=== PATIENT | male | born 1965 | race Caucasian/White ===

== ENCOUNTER 2024-02-05 06:32 | Emergency (ER) | payer OTHER, SELFPAY ==
[2012-01-28 08:32] VITALS: BP 181/96
--- NOTE | 2024-02-05 07:19 | ER ---
Nurse's Notes [facility] Name: Steve Jaramillo Age: 58 yrs Sex: Male : 1965 Arrival Date: 02/05/2024 Time: 06:32 Bed 13 [facility] MD: Diagnosis: ED Course: 02/04 06:37 Patient arrived in ED. gm2 06:57 Yaakov Chacon MD is Attending Physician. rt Administered Medications: No medications were administered Outcome: 07:18 Patient left the ED. Signatures: Suri Lopez RN RN Yaakov Chacon MD MD rt Sandi Hooks gm2
== END 2024-02-05 07:18 | disposition left against medical advice (07) ==
LOC: ER 06:32
DX: Z02.9 Encounter for administrative examinations, unspecified (principal)

== ENCOUNTER 2024-07-15 08:09 | Inpatient (IN) | payer SELFPAY ==
[2024-07-15] MEDS ORDERED: LEVALBUTEROL 1.25 MG/3 ML NEB ONE (08:22)
[2024-07-15] MEDS ORDERED: METHYLPREDNISOLONE 125 MG INJ ONE (08:22)
[2024-07-15] MEDS ORDERED: predniSONE 20 MG TAB ONE (08:22)
[2024-07-15] MEDS ORDERED: levoFLOXacin 500 MG TAB ONE (08:22)
[2024-07-15] MEDS ORDERED: IPRATROPIUM BROM 0.5MG/2.5ML ONE (08:23)
[2024-07-15] MEDS ORDERED: NA CHLORIDE 0.9% 1,000 ML ONE (08:23)
[2024-07-15] MEDS ORDERED: FAMOTIDINE 20 MG/2 ML VIAL IV ONE (08:45)
[2024-07-15 09:10] LABS: PT Prothrombin Time 13.6 SECONDS (9.4-12.5); Protime INR 1.22
[2024-07-15 09:14] LABS: Absolute Lymphocytes (CBC) 1.8 K/uL (0.7-4.9); Absolute Monocytes 0.7 K/uL (0.1-1.3); Absolute Neutrophil 6.4 K/uL (1.8-8.0); Basophils % 0.4 % (0-1.3); Eosinophils % 0.5 % (0-4.4); Hemoglobin 13.2 g/dL (13.6-17.9); Lymphocytes % 19.9 % (15.3-44.8); MCH 29.5 pg (27.0-35.0); MCV 92.2 fL (80-100); MPV 8.2 fL (7.6-11.3); Monocytes % 7.9 % (3.3-12.3); Neutrophils % 71.3 % (41.7-73.7); Platelets 219 thou/uL (152-406); RBC Red Blood Cell Count 4.45 M/uL (4.33-5.43)
[2024-07-15] MEDS ORDERED: ASPIRIN 81 MG CHEWABLE TABLET ONE (09:17)
[2024-07-15 09:25] LABS: Albumin 2.8 g/dL (3.4-5.0); Albumin/Globulin Ratio 0.8 (1.1-1.8); Anion Gap 8.5 mEq/L (5.0-15.0); Bilirubin Direct 0.2 mg/dL (0-0.2); Bilirubin Indirect, Calculated 0.5 mg/dL (0.2-0.8); Bilirubin Total 0.7 mg/dL (0.2-1.0); Globulin 3.4 g/dL (2.3-3.5); Magnesium 1.9 mg/dL (1.6-2.4); Potassium 4.5 mEq/L (3.5-5.1); Protein, Total 6.2 g/dL (6.4-8.2)
[2024-07-15 09:31] LABS: Troponin High Sensitivity 68.7 pg/mL (<58.9)
[2024-07-15 09:39] LABS: SARS-CoV-2 Antigen CONTROL BLUE LINE VIS/BG OK; SARS-CoV-2 Antigen Rapid Res Negative (Negative)
--- NOTE | 2024-07-15 09:46 | RAD REPORT ---
EXAMINATION: ONE VIEW CHEST XR CLINICAL INDICATION: COPD TECHNIQUE: Frontal chest projection is submitted. Examination is limited by patient positioning and t echnique. COMPARISON: 06/04/2014 FINDINGS: Patchy airspace opacity is present in the medial right lung base infiltrate/pneumonia. The heart is m oderately enlarged in size. No displaced fractures identified. IMPRESSION: Moderate medial right lung base pneumonia suspected.
--- NOTE | 2024-07-15 10:08 | ER ---
Nurse's Notes [facility] Name: Steve Jaramillo Age: 58 yrs Sex: Male : 1965 Arrival Date: 07/15/2024 Time: 08:09 Bed 6 Private MD: Diagnosis: Cardiomegaly;Chronic combined systolic (congestive) and diastolic (congestive) heart failure;Pleural effusion in other conditions classified elsewhere-moderate bilateral;Essential (primary) hypertension;Tobacco abuse counseling;Tobacco use Presentation: 07/15 08:25 Chief complaint: Patient states: SOB x1 WK. Coronavirus screen: At this time, the bp client does not indicate any symptoms associated with coronavirus-19. Ebola Screen: No symptoms or risks identified at this time. Initial Sepsis Screen: Does the patient meet any 2 criteria? HR > 90 bpm. No. Patient's initial sepsis screen is negative. Does the patient have a suspected source of infection? No. Patient's initial sepsis screen is negative. Risk Assessment: Do you want to hurt yourself or someone else? Patient reports no desire to harm self or others. Onset of symptoms is unknown. 08:25 Method Of Arrival: Ambulatory bp 08:25 Acuity: JESSE 3 bp Triage Assessment: 08:26 General: Appears in no apparent distress. Behavior is calm, cooperative, appropriate bp for age. Pain: Denies pain. EENT: No deficits noted. Neuro: No deficits noted. Cardiovascular: Rhythm is sinus tachycardia. Respiratory: Reports shortness of breath Breath sounds with wheezes bilaterally. Onset: The symptoms/episode began/occurred at an unknown time. the patient has mild shortness of breath. GI: No signs and/or symptoms were reported involving the gastrointestinal system. : No signs and/or symptoms were reported regarding the genitourinary system. Derm: No deficits noted. Musculoskeletal: No deficits noted. Historical: - Allergies: 08:26 No Known Allergies; bp - PMHx: 08:26 Hypertension; Kidney stones; bp - Immunization history:: Adult Immunizations up to date. - Infectious Disease History:: Denies. - Social history:: Smoking status: Patient reports the use of cigarette tobacco products, unknown amount. Screenin:27 [facility] ED Fall Risk Assessment (Adult) History of falling in the last 3 months, bp including since admission No falls in past 3 months (0 pts) Confusion or Disorientation No (0 pts) Intoxicated or Sedated No (0 pts) Impaired Gait No (0 pts) Mobility Assist Device Used No (0 pt) Altered Elimination No (0 pt) Score/Fall Risk Level 0 - 2 = Low Risk Oriented to surroundings. Abuse screen: Denies threats or abuse. Denies injuries from another. Nutritional screening: No deficits noted. Tuberculosis screening: No symptoms or risk factors identified. Assessment: 08:27 General: Appears in no apparent distress. Behavior is calm, cooperative, appropriate bp for age. Cardiovascular: Rhythm is sinus tachycardia. Respiratory: Airway is patent Respiratory effort is labored. 08:30 General: Appears in no apparent distress. uncomfortable, Behavior is calm, cooperative, jl7 appropriate for age. Pain: Complains of pain in epigastric area. Neuro: Level of Consciousness is awake, alert, obeys commands, Oriented to person, place, time, situation. Respiratory: Airway is patent Respiratory effort is even, labored, Respiratory pattern is regular, Breath sounds are diminished bilaterally. GI: Abdomen is round distended. Derm: Skin is pink, warm \T\ dry. 09:37 Reassessment: No changes from previously documented assessment. Patient is alert, bp oriented x 3, equal unlabored respirations, skin warm/dry/pink. Vital Signs: 08:25 BP 157 / 95; Pulse 106; Resp 24; Temp 98; Pulse Ox 100% on R/A; bp 09:36 BP 157 / 102; Pulse 106; Resp 35; Pulse Ox 100% ; Weight 108 kg; Height 6 ft. 1 in. ; bp 10:45 BP 139 / 86; Pulse 107; Resp 25; Pulse Ox 100% on R/A; jl7 11:28 BP 154 / 102; Pulse 105; Resp 31; Temp 98; Pulse Ox 100% on 3 lpm NC; bp 09:36 Body Mass Index 31.41 (108.00 kg, 185.42 cm) bp ED Course: 08:10 Patient arrived in ED. mr 08:12 Juan Jose Breen, JOSE A is Primary Nurse. jl7 08:17 Ed Jung MD is Attending Physician. chika 08:26 Triage completed. bp 08:26 Arm band placed on. bp 08:27 Patient has correct armband on for positive identification. bp 08:30 Initial lab(s) drawn, by ED staff, sent to lab. EKG done, by ED staff, reviewed by bp Ed Jung MD. Inserted saline lock: 20 gauge in right antecubital area, using aseptic technique. Blood collected. Flushed with 10 mL NS. 09:43 Chest Single View XRAY In Process Unspecified. EDMS 09:51 CT Aorta for Dissection In Process Unspecified. EDMS 10:06 Chetan Chou MD is Hospitalizing Provider. [facility] 10:46 Provided Education on: use of call kamara. jl7 10:46 Patient admitted, IV remains in place. intact, No redness/swelling at site. jl7 11:28 No provider procedures requiring assistance completed. bp 11:45 lunch tray delivered to pt in er 6. sp Administered Medications: 10:47 Discontinued: ns 0.9% 1000 ml IV at 1000 ml once; to be given as a bolus over 60 minutesjl7 08:50 Drug: NS 0.9% IV 1000 ml IV at 1000 ml once; to be given as a bolus over 60 minutes jl7 Route: IV; Rate: 1000 ml; Site: right antecubital; 10:47 Follow up: Response: No adverse reaction; IV Status: Order to discontinue infusion jl7 08:50 Drug: MethylPrednisoLONE IVP 125 mg IVP once Route: IVP; Site: right antecubital; jl7 10:47 Follow up: Response: No adverse reaction jl7 08:56 Drug: Levalbuterol Inhalation 3.75 mg Inhalation once Route: Inhalation; jl7 10:48 Follow up: Response: No adverse reaction jl7 08:56 Drug: Ipratropium Inhalation Aerosol 0.5 mg Inhalation once Route: Inhalation; jl7 10:48 Follow up: Response: No adverse reaction jl7 08:56 Drug: Famotidine IVP 20 mg IVP once; dilute with 10 mL 0.9% NaCl; give over 2 minutes jl7 Route: IVP; Site: right antecubital; 10:47 Follow up: Response: No adverse reaction jl7 09:10 Drug: predniSONE PO 60 mg PO once Route: PO; jl7 10:48 Follow up: Response: No adverse reaction jl7 09:19 Drug: Aspirin PO Chewable Tablet 162 mg PO once Route: PO; bp 10:47 Follow up: Response: No adverse reaction jl7 09:26 Drug: LevOfloxacin PO 750 mg PO once Route: PO; bp 10:47 Follow up: Response: No adverse reaction jl7 10:20 Drug: Furosemide IVP 20 mg IVP once; give over 2 minutes Route: IVP; Site: right bp antecubital; 11:29 Follow up: Response: No adverse reaction bp 10:20 Drug: Enoxaparin Sub-Q 1 mg/kg Sub-Q once Route: Sub-Q; Site: right lower abdomen; bp 11:29 Follow up: Response: No adverse reaction bp 10:45 Drug: Furosemide PO 40 mg PO once Route: PO; bp 11:29 Follow up: Response: No adverse reaction bp Medication: 08:27 VIS not applicable for this client. bp Outcome: 10:07 Decision to Hospitalize by Provider. chika 11:28 Admitted to Med/surg accompanied by tech, via wheelchair, room 201, with oxygen, with bp chart, 11:28 Condition: stable 11:28 Instructed on the need for admit, 12:01 Patient left the ED. bp Signatures: Dispatcher [employer] EDMS Ed Jung MD MD cha Pinkerton, Shawna sp Rivera, Mary, Reg Reg mr Juan Jose Breen, RN RN jl7 Bruce Ellis, RN RN bp Corrections: (The following items were deleted from the chart) 10:18 09:36 BP 157 / 102; Pulse 106bpm; Resp 35bpm; Pulse Ox 100%; bp bp
--- NOTE | 2024-07-15 10:08 | EDPHYS ---
Physician Documentation [facility] Name: Steve Jaramillo Age: 58 yrs Sex: Male : 1965 Arrival Date: 07/15/2024 Time: 08:09 Bed 6 Private MD: ED Physician Ed Jung HPI: 07/15 08:39 This 58 yrs old Male presents to ER via Ambulatory with complaints of chika Breathing Difficulty. 08:39 The patient has shortness of breath at rest, with light activity. Onset: The chika symptoms/episode began/occurred 14 day(s) ago. Duration: The symptoms are continuous, and are steadily getting worse. The patient's shortness of breath is aggravated by coughing, exertion, light activity, is alleviated by rest, sitting up, application of supplemental oxygen. Associated signs and symptoms: The patient has no apparent associated signs or symptoms. The patient has experienced similar episodes in the past, several times. Historical: - Allergies: 08:26 No Known Allergies; bp - PMHx: 08:26 Hypertension; Kidney stones; bp - Immunization history:: Adult Immunizations up to date. - Infectious Disease History:: Denies. - Social history:: Smoking status: Patient reports the use of cigarette tobacco products, unknown amount. ROS: 08:41 Constitutional: Negative for fever, chills, and weight loss, Eyes: Negative for injury, chika pain, redness, and discharge, ENT: Negative for injury, pain, and discharge, Neck: Negative for injury, pain, and swelling, Back: Negative for injury and pain, : Negative for injury, bleeding, discharge, and swelling, MS/Extremity: Negative for injury and deformity, Skin: Negative for injury, rash, and discoloration, Neuro: Negative for headache, weakness, numbness, tingling, and seizure, 08:41 Cardiovascular: Positive for chest pain, with cough, 08:41 Respiratory: Positive for cough, shortness of breath, wheezing, expiratory, 08:41 Abdomen/GI: Positive for abdominal pain, of the epigastric area, Exam: 08:41 Constitutional: This is a well developed, well nourished patient who is awake, alert, chika and in no acute distress. Head/Face: Normocephalic, atraumatic. Eyes: Pupils equal round and reactive to light, extra-ocular motions intact. Lids and lashes normal. Conjunctiva and sclera are non-icteric and not injected. Cornea within normal limits. Periorbital areas with no swelling, redness, or edema. ENT: Nares patent. No nasal discharge, no septal abnormalities noted. Tympanic membranes are normal and external auditory canals are clear. Oropharynx with no redness, swelling, or masses, exudates, or evidence of obstruction, uvula midline. Mucous membranes moist. Neck: Trachea midline, no thyromegaly or masses palpated, and no cervical lymphadenopathy. Supple, full range of motion without nuchal rigidity, or vertebral point tenderness. No Meningismus. Chest/axilla: Normal chest wall appearance and motion. Nontender with no deformity. No lesions are appreciated. Cardiovascular: Regular rate and rhythm with a normal S1 and S2. No gallops, murmurs, or rubs. Normal PMI, no JVD. No pulse deficits. Back: No spinal tenderness. No costovertebral tenderness. Full range of motion. Male : Normal genitalia with no discharge or lesions. Skin: Warm, dry with normal turgor. Normal color with no rashes, no lesions, and no evidence of cellulitis. MS/ Extremity: Pulses equal, no cyanosis. Neurovascular intact. Full, normal range of motion., bilateral aka Neuro: Awake and alert, GCS 15, oriented to person, place, time, and situation. Cranial nerves II-XII grossly intact. Motor strength 5/5 in all extremities. Sensory grossly intact. Cerebellar exam normal. Normal gait. Psych: Awake, alert, with orientation to person, place and time. Behavior, mood, and affect are within normal limits. 08:41 ECG was reviewed by the Attending Physician. 08:41 Respiratory: the patient does not display signs of respiratory distress, Respirations: labored breathing, that is mild, Breath sounds: decreased breath sounds, that are moderate, are scattered, rhonchi, that are mild, are scattered, stridor, is not appreciated, + upper airway congestion. Respiratory rate: 24 08:43 Musculoskeletal/extremity: DVT Exam: No signs of deep vein thrombosis. no pain, no chika swelling, no tenderness, negative Homans' sign noted on exam, no appreciated bluish discoloration, no erythema, no increased warmth, Vital Signs: 08:25 BP 157 / 95; Pulse 106; Resp 24; Temp 98; Pulse Ox 100% on R/A; bp 09:36 BP 157 / 102; Pulse 106; Resp 35; Pulse Ox 100% ; Weight 108 kg; Height 6 ft. 1 in. ; bp 10:45 BP 139 / 86; Pulse 107; Resp 25; Pulse Ox 100% on R/A; jl7 11:28 BP 154 / 102; Pulse 105; Resp 31; Temp 98; Pulse Ox 100% on 3 lpm NC; bp 09:36 Body Mass Index 31.41 (108.00 kg, 185.42 cm) bp MDM: 08:17 Medical Screening Exam initiated chika 08:43 Antibiotic administration: The patient is discharged and will get outpatient [facility] antibiotics, Levaquin. HEART Score: History: Slightly Suspicious (0), ECG: Non specific repolarization disturbance / LBTB / PM (1), Age: > 45 and < 65 years (1), Risk Factors: > or = 3 Risk factors for atherosclerotic disease (2), [Hypercholesterolemia] [Hypertension] [Active Smoker] [+ Family HX] Troponin: < or = 1 x Normal Limit (0). The patient was given aspirin in the Emergency Department. Immunization status: Influenza vaccine: within last 5 years. Data reviewed: vital signs, nurses notes, lab test result(s), EKG, radiologic studies, CT scan, plain films. Consideration of Admission/Observation Escalation of care including admission/observation considered. I considered the following discharge prescriptions or medication management in the emergency department Medications were administered in the Emergency Department. See MAR. Independent interpretation of the following test(s) in the Emergency Department EKG: See my EKG interpretation above. Test considered but Not performed: Ultrasound no 2 d echo. Historians other than the Patient: pt well informed. Care significantly affected by the following chronic conditions: Hypertension, tobacco abuse. Counseling: I had a detailed discussion with the patient and/or guardian regarding the historical points, exam findings, and any diagnostic results supporting the discharge/admit diagnosis, lab results, radiology results, the need for outpatient follow up, for definitive care, a family practitioner, a structural worker. 07/15 08:19 Order name: Basic Metabolic Panel; Complete Time: 09:34 [facility] 07/15 08:19 Order name: CBC with Diff; Complete Time: :34 [facility] 07/15 08:19 Order name: LFT's; Complete Time: 09:34 chika 07/15 08:19 Order name: Magnesium; Complete Time: 09:34 chika 07/15 08:19 Order name: NT PRO-BNP; Complete Time: 09:34 chika 07/15 08:19 Order name: PT-INR; Complete Time: 09:34 chika 07/15 08:19 Order name: Troponin HS; Complete Time: 09:34 chika 07/15 08:19 Order name: SARS RAPID; Complete Time: 09:59 [facility] 07/15 08:19 Order name: Flu; Complete Time: 09:59 [facility] 07/15 10:00 Order name: Blood Culture Adult (2) [facility] 07/15 10:00 Order name: Lactate w/ 2H reflex if indic. [facility] 07/15 10:25 Order name: Troponin High Sensitivity cm12 07/15 10:26 Order name: BNP cm12 07/15 10:51 Order name: Urinalysis w/ reflexes EDMS 07/15 10:51 Order name: Acute Hepatitis Panel EDMS 07/15 10:51 Order name: Acute Hepatitis Panel EDMS 07/15 10:51 Order name: CBC with Automated Diff EDMS 07/15 10:51 Order name: CBC with Automated Diff EDMS 07/15 10:51 Order name: CBC with Automated Diff EDMS 07/15 10:51 Order name: CBC with Automated Diff EDMS 07/15 10:51 Order name: Comprehensive Metabolic Panel EDMS 07/15 10:51 Order name: Comprehensive Metabolic Panel EDMS 07/15 10:51 Order name: Comprehensive Metabolic Panel EDMS 07/15 10:51 Order name: Comprehensive Metabolic Panel EDMS 07/15 10:51 Order name: Magnesium EDMS 07/15 10:51 Order name: Magnesium EDMS 07/15 10:51 Order name: Magnesium EDMS 07/15 10:51 Order name: Magnesium EDMS 07/15 10:51 Order name: NT PRO-BNP EDMS 07/15 10:51 Order name: NT PRO-BNP EDMS 07/15 10:51 Order name: NT PRO-BNP EDMS 07/15 10:51 Order name: NT PRO-BNP EDMS 07/15 10:51 Order name: Troponin High Sensitivity EDMS 07/15 10:51 Order name: Troponin High Sensitivity EDMS 07/15 08:38 Order name: CT Aorta for Dissection; Complete Time: 10:27 chika 07/15 08:55 Order name: Chest Single View XRAY; Complete Time: 09:59 [facility] 07/15 10:51 Order name: CONS Physician Consult EDCO 07/15 08:19 Order name: Cardiac monitoring; Complete Time: 08:34 [facility] 07/15 08:19 Order name: EKG - Nurse/Tech; Complete Time: 08:56 [facility] 07/15 08:19 Order name: IV Saline Lock; Complete Time: 08:34 [facility] 07/15 08:19 Order name: Labs collected and sent; Complete Time: 08:34 [facility] 07/15 08:19 Order name: O2 Per Protocol; Complete Time: 08:22 [facility] 07/15 08:19 Order name: O2 Sat Monitoring; Complete Time: 08:22 [facility] EC:41 Rate is 104 beats/min. Rhythm is regular. QRS [place] is Normal. GA interval is normal. chika QRS interval is normal. QT interval is normal. No Q waves. T waves are Inverted in leads I, aVL. No ST changes noted. Clinical impression: Sinus tachycardia. Interpreted by me. Reviewed by me. Administered Medications: 10:47 Discontinued: ns 0.9% 1000 ml IV at 1000 ml once; to be given as a bolus over 60 minutesjl7 08:50 Drug: NS 0.9% IV 1000 ml IV at 1000 ml once; to be given as a bolus over 60 minutes jl7 Route: IV; Rate: 1000 ml; Site: right antecubital; 10:47 Follow up: Response: No adverse reaction; IV Status: Order to discontinue infusion jl7 08:50 Drug: MethylPrednisoLONE IVP 125 mg IVP once Route: IVP; Site: right antecubital; jl7 10:47 Follow up: Response: No adverse reaction jl7 08:56 Drug: Levalbuterol Inhalation 3.75 mg Inhalation once Route: Inhalation; jl7 10:48 Follow up: Response: No adverse reaction jl7 08:56 Drug: Ipratropium Inhalation Aerosol 0.5 mg Inhalation once Route: Inhalation; jl7 10:48 Follow up: Response: No adverse reaction jl7 08:56 Drug: Famotidine IVP 20 mg IVP once; dilute with 10 mL 0.9% NaCl; give over 2 minutes jl7 Route: IVP; Site: right antecubital; 10:47 Follow up: Response: No adverse reaction jl7 09:10 Drug: predniSONE PO 60 mg PO once Route: PO; jl7 10:48 Follow up: Response: No adverse reaction jl7 09:19 Drug: Aspirin PO Chewable Tablet 162 mg PO once Route: PO; bp 10:47 Follow up: Response: No adverse reaction jl7 09:26 Drug: LevOfloxacin PO 750 mg PO once Route: PO; bp 10:47 Follow up: Response: No adverse reaction jl7 10:20 Drug: Furosemide IVP 20 mg IVP once; give over 2 minutes Route: IVP; Site: right bp antecubital; 11:29 Follow up: Response: No adverse reaction bp 10:20 Drug: Enoxaparin Sub-Q 1 mg/kg Sub-Q once Route: Sub-Q; Site: right lower abdomen; bp 11:29 Follow up: Response: No adverse reaction bp 10:45 Drug: Furosemide PO 40 mg PO once Route: PO; bp 11:29 Follow up: Response: No adverse reaction bp Disposition Summary: 07/15/24 10:07 Hospitalization Ordered Notes: Hospitalization Status: Inpatient Admission chika Provider: Chetan Chou cha Location: Telemetry/MedSurg (Inpatient) chika Condition: Fair chika Problem: new chika Symptoms: have improved chika Bed/Room Type: Standard chika Room Assignment: 201(07/15/24 11:22) sp Diagnosis - Cardiomegaly chika - Chronic combined systolic (congestive) and diastolic (congestive) heart failure chika - Pleural effusion in other conditions classified elsewhere - moderate bilateral chika - Essential (primary) hypertension chika - Tobacco abuse counseling chika - Tobacco use chika Forms: - Medication Reconciliation Form chika - SBAR form chika - Leadership Thank You Letter chika Signatures: Dispatcher [employer] EDEd Hernandez MD MD cha Pinkerton, Shawna sp Leal, Jahala RN RN jl7 Bruce Ellis RN RN Jennyfer Alcaraz FNP FNP cm12 Corrections: (The following items were deleted from the chart) 08:20 08:20 BASIC METABOLIC PANEL+C.LAB.BRZ ordered. EDMS EDMS 08:20 08:20 CBC+H.LAB.BRZ ordered. EDMS EDMS 08:20 08:20 HEPATIC FUNCTION+C.LAB.BRZ ordered. EDMS EDMS 08:20 08:20 MAGNESIUM+C.LAB.BRZ ordered. EDMS EDMS 08:20 08:20 PROBNP+C.LAB.BRZ ordered. EDMS EDMS 08:20 08:20 PROTIME (+INR)+COAG.LAB.BRZ ordered. EDMS EDMS 08:20 08:20 Troponin High Sensitivity+C.LAB.BRZ ordered. EDMS EDMS 08:20 08:20 SARS-COV-2 Antigen Rapid+I.LAB.BRZ ordered. EDMS EDMS 08:20 08:20 Influenza Screen (A \T\ B)+BA.LAB.BRZ ordered. EDMS EDMS 10:01 10:00 BLOOD CULTURE*+BA.LAB.BRZ ordered. EDMS EDMS 10:01 10:00 LACTATE+C.LAB.BRZ ordered. EDMS EDMS 10:25 10:25 Troponin High Sensitivity+C.LAB.BRZ ordered. EDMS EDMS 10:26 10:26 PROBNP+C.LAB.BRZ ordered. EDMS EDMS 11:22 10:07 chika sp
--- NOTE | 2024-07-15 10:09 | RAD REPORT ---
EXAM: CTA of the chest, abdomen and pelvis HISTORY: Chest pain and back pain dissection, pe;Abd pain COMPARISON: 10/06/2017 TECHNIQUE: Multiple contiguous axial images were obtained a CTA of the chest and abdomen with contras t per aortic dissection protocol. This involves 3D reconstructions, MIPs, volume rendered images and/or shaded surface rendering. One or more of the following dose reduction techniques were used: Au tomated exposure control, adjustment of the mA and/or kV according to patient size, and/or iterative reconstruction. Unless otherwise specified, incidental findings do not require dedicated im aging follow-up. Sagittal and coronal 3-D MIP reformats were performed. FINDINGS: PULMONARY ARTERIES: Normal in caliber without filling defects to suggest pulmonary emboli. ASCENDING THORACIC AORTA: Normal caliber without evidence of dissection or aneurysmal dilatation. DESCENDING THORACIC AORTA: Normal caliber without evidence of dissection or aneurysmal dilatation. ABDOMINAL AORTA: Mild atherosclerosis is seen, multifocal without aneurysm or dissection. CELIAC TRUNK: Patent. SMA: Patent GRIFFIN: Patent RENAL ARTERIES: Bilateral single renal arteries without significant atherosclerotic disease. MEDIASTINUM: No hilar or mediastinal lymphadenopathy. Cardiac size is prominent. LUNGS: Mild interstitial pulmonary edema seen. PLEURAL SPACE: Moderate pleural effusions, slightly larger on the right. LIVER: Subtle nodular contour suggests early cirrhosis. 8 mm low-density lesion anterior left lobe li alvaro, indeterminant.. SPLEEN: Unremarkable. PANCREAS: Unremarkable. KIDNEYS: Unremarkable. ADRENALS: Enlarged bilateral adrenal glands.. BOWEL: Moderate stool retention throughout the colon.. RETROPERITONEUM: No lymphadenopathy. BONES: Unremarkable ADDITIONAL FINDINGS: Moderate fat-containing umbilical hernia. Mild free fluid is seen in the pelvis and paracolic gutter. IMPRESSION: No evidence of thoracic or abdominal aortic aneurysm or dissection. Dependent pulmonary edema findings present with bilateral pleural effusions and cardiomegaly, suggest s CHF.
--- NOTE | 2024-07-15 10:30 | P.HP ---
Certification for Inpatient Patient admitted to: Observation With expected LOS: <2 Midnights <Jennyfer Goode - Last Filed: 07/15/24 14:56> Patient History Date of Service: 07/15/24 Reason for admission: Chest pain History of Present Illness: 58-year-old male with a past medical history of hypertension, tobacco use, presents to the emergency room with chest pain. He reports chest pain is substernal, nonradiating, he reports associated shortness of breath, shortness of breath worse while lying flat, worse with exertion. He reports symptoms worse over the last week. He reports cough, no reported fever, abdominal pain, edema, no reported history of HI, cardiac stents. Reports daily tobacco use, reports recently stopped alcohol in the last couple months. ER evaluation blood pressure 157/95, heart rate sinus tachycardia 106, respirations 24, temp 98, 90% on room air, EKG regular rate and rhythm, rate 124, ST changes, chest x-ray right lower lobe pneumonia, cardiomegaly, plan to admit for acute systolic, diastolic heart failure, bilateral pulmonary edema, bilateral pleural effusions, tobacco use. CT dissection 8 mm low-density lesion of the left lobe of the liver, enlarged bilateral adrenal glands, moderate pleural effusions larger on the right, no thoracic abdominal aortic aneurysm or dissection. Pulmonary edema with bilateral pleural effusions, cardiomegaly - Past Medical/Surgical History Diabetic: No -: kidney stones -: Hypertension -: knee SX - Social History Smoking Status: Current some day smoker Alcohol use: Yes CD- Drugs: No Caffeine use: No Place of Residence: Home <Jennyfer Goode - Last Filed: 07/15/24 14:56> Date of Service: 07/15/24 <Chetan Chou - Last Filed: 07/16/24 02:32> Allergies No Known Allergies Allergy (Verified 06/03/14 15:48) Home Medications: NK [No Home Meds] 06/03/14 Review of Systems 10-point ROS is otherwise unremarkable General: As per HPI <Jennyfer Goode - Last Filed: 07/15/24 14:56> Physical Examination - Physical Exam General: Alert, Oriented x3, Mild distress HEENT: Atraumatic, Normocephalic Neck: 2+ carotid pulse no bruit, JVD not distended Respiratory: Crackles/rales, Other (Tachypneic) Cardiovascular: Normal pulses, Normal S1 S2, Other (Sinus tachycardia rate 104) Gastrointestinal: Normal bowel sounds, Soft and benign Musculoskeletal: No swelling, No contractures Integumentary: No breakdown, No tenderness/swelling Neurological: Normal speech, Normal strength at 5/5 x4 extr, Sensation intact, Cranial nerves 3-12 intact - Studies Laboratory Data (last 24 hrs) 07/15/24 07/15/24 07/15/24 08:29 08:29 08:29 WBC 9.00 Hgb 13.2 L Hct 41.0 Plt Count 219 PT 13.6 H INR 1.22 Sodium 140 Potassium 4.5 BUN 29 H Creatinine 1.39 H Glucose 113 H Magnesium 1.9 Total Bilirubin 0.7 AST 47 H ALT 97 H Alkaline Phosphatase 116 Microbiology Data (last 24 hrs): 07/15/24 08:49 Nasopharnyx Influenza Type A Antigen Screen - Final 07/15/24 08:49 Nasopharnyx Influenza Type B Antigen Screen - Final <Jennyfer Goode - Last Filed: 07/15/24 14:56> - Studies Laboratory Data (last 24 hrs) 07/15/24 07/15/24 07/15/24 08:29 08:29 08:29 WBC 9.00 Hgb 13.2 L Hct 41.0 Plt Count 219 PT 13.6 H INR 1.22 Sodium 140 Potassium 4.5 BUN 29 H Creatinine 1.39 H Glucose 113 H Magnesium 1.9 Total Bilirubin 0.7 AST 47 H ALT 97 H Alkaline Phosphatase 116 Microbiology Data (last 24 hrs): 07/15/24 08:49 Nasopharnyx Influenza Type A Antigen Screen - Final 07/15/24 08:49 Nasopharnyx Influenza Type B Antigen Screen - Final <Chetan Chou - Last Filed: 07/16/24 02:32> Assessment and Plan - Problems (Diagnosis) (1) Chest pain, rule out acute myocardial infarction Current Visit: Yes Status: Acute (2) NSTEMI (non-ST elevated myocardial infarction) Current Visit: Yes Status: Acute (3) Acute combined systolic and diastolic heart failure Current Visit: Yes Status: Acute (4) Pulmonary edema Current Visit: Yes Status: Acute (5) Acute kidney injury Current Visit: Yes Status: Acute (6) Transaminitis Current Visit: Yes Status: Acute (7) Liver lesion Current Visit: Yes Status: Acute (8) Tobacco abuse Current Visit: Yes Status: Acute - Plan Admit to [facility] Cardiology consult, telemetry Echo, ordered for the a.m. Nuclear med stress test ordered for the a.m. Aggressive diuresis, Trend troponins, BNP, Daily weight,I&O) Therapeutic Lovenox 1 mg/kg Aspirin, beta-corey, antilipid, nitro, as needed analgesics, History of ETOH use-Transaminitis, liver ultrasound, hepatitis panel Educated on tobacco cessation Full code N.p.o. after midnight Diet cardiac, Disposition Home independent Discharge Plan: Home - Advance Directives Does patient have a Living Will: No Does patient have a Durable POA for Healthcare: No - Code Status/Comfort Care Code Status: Full Code Critical Care: No Time Spent Managing Pts Care (In Minutes): 55 <Jennyfer Goode - Last Filed: 07/15/24 14:56> Date of Service: 07/15/24 Patient was seen and examined. Events of the last 24 hours have been noted. Spoke with with JERSON regarding patient's clinical picture after evaluating and examining the patient independently. I performed a substantial part of the MDM during this patient's care today. I personally made or approved the documented management plan and acknowledge its risk of complications. I agree with the findings and documentation provided in the JERSON's notes. Appreciate cardiology input. Echocardiogram and stress test in AM. Continue with diuresing. Monitor renal function closely. <Chetan Chou - Last Filed: 07/16/24 02:32>
[2024-07-15] MEDS ORDERED: ACETAMINOPHEN 500 MG TAB PO PRN (10:46)
[2024-07-15] MEDS ORDERED: ONDANSETRON 4 MG/2 ML VIAL IV PRN (10:46)
[2024-07-15] MEDS ORDERED: ENOXAPARIN 100 MG/ML SYR SQ ONE (10:49)
[2024-07-15] MEDS ORDERED: FUROSEMIDE 40 MG TABLET ONE (10:49)
[2024-07-15] MEDS ORDERED: MORPHINE 2 MG/ML SYR IV PRN (10:49)
[2024-07-15] MEDS ORDERED: FUROSEMIDE 20 MG/ 2ML VIAL ONE (10:49)
[2024-07-15 11:04] LABS: Troponin High Sensitivity 68.8 pg/mL (<58.9)
[2024-07-15] MEDS: METOPROLOL TAR 25 MG TAB PO SCH (12:00)
[2024-07-15] MEDS ORDERED: MORPHINE 4 MG/ML SYR IV PRN (14:42)
[2024-07-15 15:05] VITALS: BMI 25.3
--- NOTE | 2024-07-15 15:07 | CON ---
Date of Consultation: 07/15/2024 Reason For Consultation: CHF. History Of Present Illness: This is a 58-year-old male who is alcoholic, who presented with shortnes s of breath, lower extremity edema, and orthopnea with mild chest discomfort. He is an active smoker for all his life. Denies having any active chest pain at present time. Past Medical History: Hypertension. Medications: Refer to reconciliation sheet for detailed list. Allergies: NO KNOWN DRUG ALLERGIES. Family History: No premature coronary artery disease or cancer. Social History: He is an active smoker. Drinks alcohol on a regular basis. Review of Systems: All systems reviewed and they are negative except as mentioned in the HPI. Physical Examination: Vital Signs: Reviewed. Head and Neck: Pupils are equal, reactive to light. Intact eye movements. No cervical adenopathy. Positive JVD. Lungs: Crackles in both lung bases. No accessory muscle use or muscle retraction. Heart: Regular rate and rhythm. No extra sounds. Abdomen: Soft and nontender. Bowel sounds positive. No organomegaly. No masses or hernia. Extremities: No clubbing, cyanosis. Positive edema. Neurologic: Alert, awake, oriented x3. No acute focal deficits appreciated. Lymph Nodes: No cervical lymphadenopathy. Investigations: NT-proBNP is 15,000, troponin 68. BUN 29, creatinine 1.39. Assessment/recommendation: 1.Acute congestive heart failure, unknown ejection fraction. Recommend to continue Lasix and obtain an echocardiogram tomorrow. 2.Elevated troponin, heavy smoker. Recommend to obtain an exercise nuclear stress test and counsele d to quit smoking. Further recommendations will follow after we get the echocardiogram as well as st ress test. Please place the patient back on Lasix. SR/MODL Voice ID: [id number] Report ID: [id number]
--- NOTE | 2024-07-15 17:00 | RAD REPORT ---
EXAMINATION: Ultrasound of the liver CLINICAL HISTORY: Liver lesion, COMPARISON: Recent CT study. FINDINGS: Liver: Visualized portions of the liver demonstrate diffuse parenchymal echogenicity suggesting steat osis. Significant bowel gas shadowing limited study. The contour of the liver is mildly nodular. Bile ducts: No intrahepatic or extrahepatic biliary dilatation. Common bile duct measures 3 mm. Fluid: No ascites. Spleen: Normal size. The spleen measures 10.5 cm. IMPRESSION: Diffuse fatty liver is seen with mild nodular contour suggesting cirrhosis. Discrete liver lesion is not identified, however assessment is limited by bowel gas shadowing. MRI liver protocol could provide more information if clinically desired.
[2024-07-15 18:23] LABS: Specific Gravity 1.013 (1.005-1.030); Urine Bilirubin NEGATIVE (Negative); Urine Blood Negative (Negative); Urine Clarity Clear (Clear); Urine Color Colorless (Yellow); Urine Glucose NEGATIVE (Negative); Urine Ketones NEGATIVE (Negative); Urine Microscopic Reflex YN NO UMIC; Urine Nitrite NEGATIVE (Negative); Urine Protein NEGATIVE (Negative); Urine Urobilinogen Normal (Normal)
[2024-07-15] MEDS: ATORVASTATIN 40 MG TAB PO SCH (20:53)
[2024-07-16 05:58] LABS: Absolute Lymphocytes (CBC) 1.1 K/uL (0.7-4.9); Absolute Monocytes 1.1 K/uL (0.1-1.3); Absolute Neutrophil 9.4 K/uL (1.8-8.0); Basophils % 0.2 % (0-1.3); Hematocrit 38.3 % (39.6-49.0); Hemoglobin 12.5 g/dL (13.6-17.9); Lymphocytes % 9.1 % (15.3-44.8); MCH 29.8 pg (27.0-35.0); MCHC 32.7 g/dL (32.0-36.0); MCV 91.1 fL (80-100); MPV 8.2 fL (7.6-11.3); Monocytes % 9.1 % (3.3-12.3); Neutrophils % 81.6 % (41.7-73.7); Platelets 214 thou/uL (152-406); Red Cell Distribution Width 15.9 % (12.1-15.2)
[2024-07-16 06:32] LABS: Albumin 2.7 g/dL (3.4-5.0); Albumin/Globulin Ratio 0.8 (1.1-1.8); Anion Gap 10.2 mEq/L (5.0-15.0); Bilirubin Total 0.6 mg/dL (0.2-1.0); Globulin 3.6 g/dL (2.3-3.5); Magnesium 1.9 mg/dL (1.6-2.4); Potassium 4.2 mEq/L (3.5-5.1); Protein, Total 6.3 g/dL (6.4-8.2)
[2024-07-16 07:11] LABS: Hepatitis B Core IgM Nonreactive (Nonreactive); Hepatitis B surface AG Interp. Nonreactive (Nonreactive); Hepatitis C Virus Ab Nonreactive (Nonreactive)
[2024-07-16 07:12] LABS: HBsAG Nonreactive Report Report
[2024-07-16] MEDS: ASPIRIN EC 81 MG TAB PO SCH (09:06)
--- NOTE | 2024-07-16 09:46 | P.PN ---
Subjective Date of Service: 07/16/24 Chief Complaint: Chest pain Subjective: No new changes, No C/O voiced, Tolerating diet, Ambulating, Improving Review of Systems 10-point ROS is otherwise unremarkable Physical Examination - Vital Signs Temperature: 97.8 F Blood Pressure: 156/90 Pulse: 97 Respirations: 20 Pulse Ox (%): 97 - Physical Exam General: Alert, In no apparent distress HEENT: Atraumatic, PERRLA, EOMI Neck: Supple, JVD not distended Respiratory: Clear to auscultation bilaterally, Normal air movement Cardiovascular: Regular rate/rhythm, Normal S1 S2 Gastrointestinal: Normal bowel sounds, No tenderness Musculoskeletal: No tenderness Integumentary: No rashes Neurological: Normal speech, Normal tone, Normal affect Lymphatics: No axilla or inguinal lymphadenopathy - Studies Microbiology Data (last 24 hrs): 07/15/24 08:49 Nasopharnyx Influenza Type A Antigen Screen - Final 07/15/24 08:49 Nasopharnyx Influenza Type B Antigen Screen - Final Medications List Reviewed: Yes Assessment And Plan - Current Problems (Diagnosis) (1) Tachycardia Current Visit: Yes Status: Acute Plan: most likely compensation for heart failure/possible PNA agree with lopressor 25 mg po bid (2) Decompensated heart failure Current Visit: Yes Status: Acute Plan: get echo lasix 40 mg IV BID Monitor input and output and electrolytes. (3) NSTEMI (non-ST elevated myocardial infarction) Current Visit: Yes Status: Acute Plan: mild elevated troponin but multiple risk factors including long history of tobacco use. agree with exercise nuclear stress test. ASA 81 mg daily Lipitor 40 mg daily
--- NOTE | 2024-07-16 13:06 | ECHO ---
HEIGHT: 6 ft 1 in WEIGHT: 192 lb 0 oz DATE OF STUDY: 07/16/[address]: Jennyfer Goode INTERNATIONAL STUDENT COUNSELORFlorentin 2-DIMENSIONAL: YES M.MODE: YES DOPPLER: YES COLOR FLOW: YES TDS: NO PORTABLE: YES DEFINITY: NO BUBBLE STUDY: NO DIAGNOSIS: ACUTE HEART FAILURE CARDIAC HISTORY: CATHERIZATION: SURGERY: PROSTHETIC VALVE: PACEMAKER: MEASUREMENTS (cm) DIASTOLIC (NORMALS) SYSTOLIC (NORMALS) IVSd 1.5 (0.6-1.2) LA Diam 4.6 (1.9-4.0) LVEF 10-15% LVIDd 5.1 (3.5-5.7) LVIDs 4.9 (2.0-3.5) %FS 4% LVPWd 1.6 (0.6-1.2) Ao Diam 3.1 (2.0-3.7) 2 DIMENSIONAL ASSESSMENT: RIGHT ATRIUM: ENLARGED LEFT ATRIUM: MILDLY DILATED RIGHT VENTRICLE: NORMAL LEFT VENTRICLE: NORMAL TRICUSPID VALVE: MILD TRICUSPID REGURGITATION MITRAL VALVE: MILD MITRAL REGURGITATION PULMONIC VALVE: NORMAL AORTIC VALVE: NORMAL PERICARDIAL EFFUSION: NONE AORTIC ROOT: NORMAL LEFT VENTRICULAR WALL MOTION: SEVERE GLOBAL HYPOKINESIS. DOPPLER/COLOR FLOW: GRADE III DIASTOLIC DYSFUNCTION. COMMENTS: 1. SEVERELY REDUCED LEFT VENTRICULAR SYSTOLIC FUNCTION, EJECTION FRACTION 10-15%, SEVERE GLOBAL HYPOKINESIS. 2. GRADE III DIASTOLIC DYSFUNCTION. 3. ELEVATED FILLING PRESSURE (RIGHT ATRIAL PRESSURE GREATER THAN 20mmHg) 4. MODERATE PULMONARY HYPERTENSION (RIGHT VENTRICULAR SYSTOLIC PRESSURE 50-55mmHg) 5. MILD MITRAL REGURGITATION, MILD TRICUSPID REGURGITATION. TECHNOLOGIST: VICKIE URIAS
[2024-07-16] MEDS: MORPHINE 2 MG/ML SYR IV PRN (13:45)
[2024-07-16] MEDS: FUROSEMIDE 40 MG/4 ML VIAL IV SCH (17:22)
--- NOTE | 2024-07-16 17:27 | P.PN ---
Date of Service: 07/16/24 subjective Reports substernal chest pain, n.p.o. for stress test tomorrow Room air 98% Review of Systems 10-point ROS is otherwise unremarkable General: As per HPI Physical Examination - Physical Exam General: Alert, Oriented x3, afebrile HEENT: Atraumatic, Normocephalic Neck: 2+ carotid pulse no bruit, JVD not distended Respiratory: Crackles/rales, Other (Tachypneic) Cardiovascular: Normal pulses, Normal S1 S2, Other (Sinus tachycardia rate 104) Gastrointestinal: Normal bowel sounds, Soft and benign Musculoskeletal: No swelling, No contractures Integumentary: No breakdown, No tenderness/swelling Neurological: Normal speech, Normal strength at 5/5 x4 extr, Assessment and Plan - Problems (Diagnosis) (1) Chest pain, rule out acute myocardial infarction Current Visit: Yes Status: Acute (2) NSTEMI (non-ST elevated myocardial infarction) Current Visit: Yes Status: Acute (3) Acute combined systolic and diastolic heart failure Current Visit: Yes Status: Acute (4) Pulmonary edema Current Visit: Yes Status: Acute (5) Acute kidney injury Current Visit: Yes Status: Acute (6) Transaminitis Current Visit: Yes Status: Acute (7) Liver lesion Current Visit: Yes Status: Acute (8) Tobacco abuse Current Visit: Yes Status: Acute - Plan Admit to [facility] Cardiology consult, telemetry Echo, ordered for the a.m. Nuclear med stress test ordered for the a.m. Aggressive diuresis, Trend troponins, BNP, Daily weight,I&O) Therapeutic Lovenox 1 mg/kg Aspirin, beta-corey, antilipid, nitro, as needed analgesics, History of ETOH use-Transaminitis, liver ultrasound, hepatitis panel Liver ultrasound-Diffuse fatty liver is seen with mild nodular contour suggesting cirrhosi Educated on tobacco cessation Full code N.p.o. after midnight for stress test in the a.m. Diet cardiac, Disposition Home independent Discharge Plan: Home - Advance Directives Does patient have a Living Will: No Does patient have a Durable POA for Healthcare: No - Code Status/Comfort Care Code Status: Full Code Critical Care: No Time Spent Managing Pts Care (In Minutes): 35
[2024-07-16] MEDS: CEFTRIAXONE 1,000 MG in NA CHLORIDE 0.9% 50 ML IVPB SCH (20:39)
[2024-07-16] MEDS: SACUBITRIL/VALSARTAN 49/51 MG TAB PO SCH (20:40)
[2024-07-17 05:05] LABS: Absolute Basophils 0.1 K/uL (0-0.5); Absolute Eosinophils 0.1 K/uL (0-0.5); Absolute Lymphocytes (CBC) 3.2 K/uL (0.7-4.9); Absolute Monocytes 1.2 K/uL (0.1-1.3); Basophils % 0.5 % (0-1.3); Eosinophils % 0.4 % (0-4.4); Hematocrit 39.3 % (39.6-49.0); Lymphocytes % 25.8 % (15.3-44.8); MCH 29.8 pg (27.0-35.0); MCHC 33.1 g/dL (32.0-36.0); MPV 7.9 fL (7.6-11.3); Monocytes % 9.5 % (3.3-12.3); Neutrophils % 63.8 % (41.7-73.7); Platelets 227 thou/uL (152-406); RBC Red Blood Cell Count 4.36 M/uL (4.33-5.43); Red Cell Distribution Width 15.7 % (12.1-15.2)
[2024-07-17 05:14] LABS: Albumin 2.6 g/dL (3.4-5.0); Albumin/Globulin Ratio 0.8 (1.1-1.8); Anion Gap 8.7 mEq/L (5.0-15.0); Bilirubin Total 0.7 mg/dL (0.2-1.0); Globulin 3.2 g/dL (2.3-3.5); Magnesium 1.8 mg/dL (1.6-2.4); Potassium 3.7 mEq/L (3.5-5.1); Protein, Total 5.8 g/dL (6.4-8.2)
[2024-07-17] MEDS ORDERED: REGADENOSON 0.4 MG/5 ML SYR IV ONE (09:11)
[2024-07-17] MEDS: SPIRONOLACTONE 25 MG TABLET PO SCH (10:09)
--- NOTE | 2024-07-17 12:38 | RAD REPORT ---
EXAM: Nuclear medicine cardiac perfusion examination with ejection fraction HISTORY: Chest pain Chest pain, TECHNIQUE: Rest images: 10.4 mCi technetium 99m sestamibi Stress images: 29.6 mCi of technetium 99m sestamibi COMPARISON: None. FINDINGS: Tomographic images: There is a large fixed defect noted involving the LV apex and inferior wall. Ther e is subtle areas of stress-induced ischemia suspected in the region of the LV apex septal aspect. Ejection fraction of 21%. EDV: 278 mL ESV: 218 mL LHR: 0.4 TID: 1.0 IMPRESSION: Subtle stress-induced ischemia suspected LV apex along the septal wall. Large areas of fixed defect of the apex and inferior wall presumably related to prior infarction. Low ejection fraction 21%.
--- NOTE | 2024-07-17 13:01 | P.PN ---
Subjective Date of Service: 07/17/24 Chief Complaint: Chest pain Subjective: No new changes, Improving He came back from nuclear stress test, denied any chest pain, chest congestion continued to improve, complaining of epigastric discomfort. Review of Systems Other: Consitutional; fever(-), chills (-), rigor(-), night sweat(-), unintentional weight loss(-) HEENT; diplopia (-), rhinorrhea (-), epistaxis (-), otorrhea (-), otalgia (-) Respiratory; shortness of breath (+), wheezing (-), cough (-), sputum (-), pleuritic chest pain (-) Cardiovascular; chest pain (-), peripheral edema (+), paroxysmal nocturnal dyspnea (-), orthopnea (-) Gastrointestinal; nausea (-), vomiting (-), abdominal pain (-), diarrhea (-), constipation (-), melena (-), hematochezia (-) Urinary; urinary frequency (-), dysuria (-), urgency (-), flank pain (-), gross hematuria (-), incontinence (-) Skin; rash (-), pruritus (-) 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; headache (-), paresthesia (-), numbness (-), paralysis (-) Physical Examination - Vital Signs Temperature: 97.4 F Blood Pressure: 126/62 Pulse: 90 Respirations: 20 Pulse Ox (%): 95 - Studies Medications List Reviewed: Yes Assessment And Plan - Plan 58-year-old male with a past medical history of hypertension, tobacco use, presents to the emergency room with chest pain, his initial troponin was mildly elevated and admitted for possible non-STEMI #1 new onset heart failure with reduced ejection secondary to alcoholic dilated cardiomyopathy or ischemic cardiomyopathy CT of of the chest showed moderate to large bilateral pleural effusion more right than left, and mild pulmonary edema Transthoracic echocardiogram revealed left ventricular ejection fraction 10%, global hypokinesia with mild MR and TR, patient has history of alcohol abuse in the past, nuclear stress test result reviewed, suggestive of a questionable reversible ischemia but apex, large fixed defect consistent with old infarct we will continue IV furosemide 40 mg every 12 hour and metoprolol, spironolactone, Entresto added yesterday, SGLT2 1 inhibitor is not available at the facility #2 hypervolemia with pulmonary edema and large bilateral pleural effusion related to #1 will continue IV furosemide 40 mg every 12 hour and Aldactone, I will order follow-up chest x-ray tomorrow morning #2 hepatic congestion rule out early cardiac liver cirrhosis by ultrasound of liver Stable liver function test, no sign of decompensation Plan to discharge home in a couple of days
[2024-07-17] MEDS: POTASSIUM 25 MEQ EFFERV TAB PO ONE (14:34)
[2024-07-17] MEDS: MAGNESIUM SULFATE 1 gm IVPB 1 GM/100 ML BAG IV ONE (14:34)
[2024-07-17 16:01] VITALS: O2SAT 95
--- NOTE | 2024-07-17 16:04 | TREADPHA ---
DX: CHEST PAIN Date of Study: 07/17/2024 Ht: 6' 1 " Wt: 192 lb 0 oz Consulting Physician: CLYDE MEDICATIONS: ASPIRIN, LIPITOR, LASIX, TOPROL XL, ALDACTONE HISTORY: 58 YEAR OLD MALE WITH COMPAINTS OF CHEST PAIN AND SHORTNESS OF BREATH. HISTORY OF HYPERTENSION, FORMER SMOKER (3 DAYS). PHYSICIAL EXAMINATION: RESTING B.P.: 133/86 RESTING H.R.: 76 RESTING EKG: PROTOCOL: LEXISCAN EXERCISE TIME: 3:30 B.P. AT [place] STRESS: 157/83 IMPRESSION: PREMATURE VENTRICULAR COMPLEXES PRE PROCEDURE NOTED. PREMATURE VENTRICULAR COMPLEXES DURING AND POST PROCEDURE. PATIENT EXPERIENCED INCREASE IN SHORTNESS OF BREATH DURING PROCEDURE. SUBSIDED POST PROCEDURE. LEXISCAN INJECTED PER PROTOCOL. CARDIOLITE INJECTED PER PROTOCOL. SEE NUCLEAR MEDICINE REPORT. NO VENTRICULAR TACHYCARDIA OR SUPRAVENTRICULAR TACHYCARDIA. NO CHEST PAIN.
[2024-07-18] MEDS: METOPROLOL XL 50 MG TAB PO SCH (05:03)
[2024-07-18 05:20] LABS: Albumin 2.7 g/dL (3.4-5.0); Albumin/Globulin Ratio 0.8 (1.1-1.8); Anion Gap 7.6 mEq/L (5.0-15.0); Bilirubin Total 0.9 mg/dL (0.2-1.0); Globulin 3.3 g/dL (2.3-3.5); Magnesium 2.1 mg/dL (1.6-2.4); Potassium 3.6 mEq/L (3.5-5.1)
--- NOTE | 2024-07-18 08:33 | RAD REPORT ---
EXAMINATION: TWO VIEW CHEST XR CLINICAL INDICATION: Male, 58 years old. [facility] Follow-up on bilateral pleural effu after diuresis TECHNIQUE: 2 view radiographs of the chest were performed. COMPARISON: 07/15/2024 FINDINGS: Partial improvement of bibasilar hazy opacities. Some persistent blunting of the right costophrenic a ngle and opacification in the posterior lungs may relate to residual small effusions. No pneumothorax. The heart is normal in size. Mediastinal contours are unremarkable. IMPRESSION: Interval improvement of central congestive changes and effusions as above.
[2024-07-18] MEDS: TORSEMIDE 20 MG TAB PO SCH (08:41)
[2024-07-18 08:42] VITALS: BP 127/80
[2024-07-18 08:45] VITALS: TEMP 97.1
--- NOTE | 2024-07-18 10:02 | P.DS ---
Admission Date: 07/15/24 Discharge Date: 07/18/24 Disposition: ROUTINE DISCHARGE Discharge Condition: GOOD Reason for Admission: Chest pain Brief History of Present Illness: This is a 58-year-old male with a past medical history of hypertension, tobacco use, presents to the emergency room with chest pain, his initial troponin was mildly elevated and admitted for possible non-STEMI. He has a history of a heavy alcohol use but no NM or coronary artery disease. Hospital Course: His chest pain resolved after treatment for acute heart failure. His serial troponin plateaued. He is responding well to IV furosemide and other guide directed medical therapy. His symptoms due to hypovolemia significantly improved and his pulmonary edema and pleural effusion started resolving on follow-up x-ray. He is to follow-up with his PCP or cardiology after discharge to further adjustment of his medication. manager traffic consulted for outpatient cardiac rehab. #1 new onset heart failure with reduced ejection secondary to alcoholic dilated cardiomyopathy or ischemic cardiomyopathy His N-terminal proBNP over 5000 on admission, CT of of the chest showed moderate to large bilateral pleural effusion more right than left, and mild pulmonary edema, Transthoracic echocardiogram revealed left ventricular ejection fraction 10%, global hypokinesia with mild MR and TR, diastolic dysfunction, nuclear stress test result suggestive of a questionable reversible ischemia of the left ventricle apex, large fixed defect consistent with old infarct IV furosemide 40 mg every 12 hour switched to torsemide 20 mg once a day p.o. and metoprolol succinate, spironolactone, Entresto , SGLT2 1 inhibitor is not available at the facility #2 hypervolemia with pulmonary edema and large bilateral pleural effusion related to #1 #3 hepatic congestion rule out early cardiac liver cirrhosis by ultrasound of liver Stable liver function test, no sign of decompensation #4 medically induced GRADY or cardiorenal syndrome His creatinine are stable around 1.5, which is acceptable and expected with aggressive diuresis #5 elevated troponin secondary to decompensated heart failure, low clinical suspicion for acute coronary syndrome Vital Signs/Physical Exam: Temp Pulse Resp BP Pulse Ox 97.1 F 77 16 127/80 97 07/18/24 08:00 07/18/24 08:41 07/18/24 08:00 07/18/24 08:41 07/18/24 08:00 Other Physical/Emotional Findings: - Physical Exam. General: Not acutely ill looking, in no apparent distress,. HEENT: Normocephalic, atraumatic, nonicteric sclera, nonanemic conjunctive. Neck: Supple, without JVD or goiter or thyroid mass. Respiratory: Normal breathing effort, clear breath sound with mild bibasilar crackle. Cardiovascular: Regular rate and rhythm, S1, S2 normal, no murmur no gallop. Gastrointestinal: Normal bowel sounds, nondistended, nontender, No ascites, , No masses, no hepatosplenomegaly. Extremities l: No clubbing, No peripheral edema, full range of motion, no deformity, no muscle atrophy. Integumentary: No rashes, petechia, suspected lesions. Lymphatics: No axilla or cervical lymphadenopathy. Neurology; alert awake oriented x3, no focal neurologic deficit, normal affection . mood and behavior. Laboratory Data at Discharge: WBC 12.50 thou/uL (4.3-10.9) H 07/17/24 04:22 Hgb 13.0 g/dL (13.6-17.9) L 07/17/24 04:22 Hct 39.3 % (39.6-49.0) L 07/17/24 04:22 Plt Count 227 thou/uL (152-406) 07/17/24 04:22 PT 13.6 SECONDS (9.4-12.5) H 07/15/24 08:29 INR 1.22 07/15/24 08:29 Sodium 142 mEq/L (136-145) 07/18/24 04:37 Potassium 3.6 mEq/L (3.5-5.1) 07/18/24 04:37 BUN 32 mg/dL (7-18) H 07/18/24 04:37 Creatinine 1.54 mg/dL (0.70-1.30) H 07/18/24 04:37 Glucose 101 mg/dL (74-106) 07/18/24 04:37 Magnesium 2.1 mg/dL (1.6-2.4) 07/18/24 04:37 Total Bilirubin 0.9 mg/dL (0.2-1.0) 07/18/24 04:37 AST 27 U/L (15-37) 07/18/24 04:37 ALT 70 U/L (16-61) H 07/18/24 04:37 Alkaline Phosphatase 98 U/L (45-117) 07/18/24 04:37 Home Medications: Aspirin [Aspirin EC] 81 mg PO DAILY #30 07/18/24 Metoprolol Succinate [Toprol Xl*] 50 mg PO [id number] 30 Days #30 tab 07/18/24 Sacubitril/Valsartan [Entresto 49 mg-51 mg Tablet] 1 tab PO BID 30 Days #60 tab 07/18/24 Spironolactone [Aldactone*] 12.5 mg PO DAILY 30 Days #30 tab 07/18/24 Torsemide [Demadex*] 20 mg PO DAILY 30 Days #30 tab 07/18/24 New Medications: Spironolactone [Aldactone*] 12.5 mg PO DAILY 30 Days #30 tab Aspirin [Aspirin EC] 81 mg PO DAILY #30 Torsemide [Demadex*] 20 mg PO DAILY 30 Days #30 tab Sacubitril/Valsartan [Entresto 49 mg-51 mg Tablet] 1 tab PO BID 30 Days #60 tab Metoprolol Succinate [Toprol Xl*] 50 mg PO [id number] 30 Days #30 tab Diet: AHA Activity: Ad lexy Followup: Vinod Cee MD [Primary Care Provider] - Justin Srivastava MD [ACTIVE - CAN ADMIT] - 1-2 Weeks
== END 2024-07-18 11:53 | disposition home or self-care (01) | DRG 291 ==
LOC: ER 08:09 → ERHOLD 10:44 → 2ND 11:33
PROVIDERS: ADMIT Internal Medicine; ATTEND Internal Medicine
DX: I50.43 Acute on chronic combined systolic (congestive) and diastolic (congestive) heart failure (principal); J18.9 Pneumonia, unspecified organism; I42.6 Alcoholic cardiomyopathy; N17.9 Acute kidney failure, unspecified; I25.5 Ischemic cardiomyopathy; I10 Essential (primary) hypertension; K74.60 Unspecified cirrhosis of liver; K76.9 Liver disease, unspecified; I08.1 Rheumatic disorders of both mitral and tricuspid valves; F17.210 Nicotine dependence, cigarettes, uncomplicated; R74.01 Elevation of levels of liver transaminase levels; R79.89 Other specified abnormal findings of blood chemistry; Z71.6 Tobacco abuse counseling; Z95.5 Presence of coronary angioplasty implant and graft; Z79.82 Long term (current) use of aspirin; Z11.52 Encounter for screening for COVID-19; Z79.899 Other long term (current) drug therapy
CPT/HCPCS: 36415; 71045; 71046; 71275; 74175; 76705; 78452; 80048; 80053; 80074; 80076; 81003; 83605; 83735; 83880; 84484; 85025; 85610; 87040; 87804; 87811; 93017; 93306; 94760; 96361; 96372; 96374; 96375; 99285; A9500; J0696; J1650; J1940; J2270; J2785; J2919; J3475; J7030; J7512; J7614; J7644; Q9967